=== PATIENT | female | born 1985 | race Caucasian/White ===

== ENCOUNTER 2017-04-13 13:23 | Emergency (ER) | payer OTHER ==
[~2017-04-13] VITALS: Ht 167.6 cm; Wt 78.0 kg
[~2017-04-13 13:23] MED LIST: ADDERALL20 MG; AMOXICILLIN500 MG PO; FLONASE NASAL50 MCG; LEVOTHYROXIN75 MCG PO; LEXAPRO10 MG PO; LOESTRIN 24; LOESTRIN 24 OR; NAPROSYN500 MG PO; PAXIL30 MG PO; PHENTERMINE37.5 MG OR; TOPAMAX50 M1 PO
[2017-04-13 14:50] VITALS: BP 123/78
[2017-04-13] MEDS ORDERED: GENTAK0.32 OS (14:50)
== END 2017-04-13 15:00 | disposition home or self-care (01) | DRG 125 ==
LOC: ED 13:23
DX: H11.31 Conjunctival hemorrhage, right eye (principal); H10.9 Unspecified conjunctivitis; X58.XXXA Exposure to other specified factors, initial encounter

== ENCOUNTER 2019-06-19 09:47 | Emergency (ER) | payer OTHER ==
[~2019-06-19] VITALS: Ht 167.6 cm; Wt 79.0 kg
[~2019-06-19 09:47] MED LIST changes: +GENTAK0.32 OS
[2019-06-19] MEDS ORDERED: IMITREX100 M1 PO (11:20)
[2019-06-19 11:21] VITALS: BP 151/65
== END 2019-06-19 11:30 | disposition home or self-care (01) | DRG 103 ==
LOC: ED 09:47
DX: G43.909 Migraine, unspecified, not intractable, without status migrainosus (principal); E03.9 Hypothyroidism, unspecified